=== PATIENT | female | born 1985 | race Caucasian/White ===

== ENCOUNTER 2018-09-14 17:39 | Emergency (ER) ==
[2018-09-14 17:46] VITALS: BP 153/101; TEMP 99.1; BMI 22.5
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
[2018-09-14] MEDS ORDERED: TORADOL IM STA (20:22)
== END 2018-09-14 20:53 | disposition home or self-care (01) ==
LOC: ED 17:39
DX: S13.4XXA Sprain of ligaments of cervical spine, initial encounter (principal); V89.2XXA Person injured in unspecified motor-vehicle accident, traffic, initial encounter
CPT/HCPCS: 96372; 99283